=== PATIENT | male | born 1960 | race Two or more races ===

== ENCOUNTER 2023-11-08 14:54 | Emergency (ER) | payer BC, OTHER ==
[~2023-11-08] VITALS: Ht 165.1 cm; Wt 131.5 kg
[2023-11-08 15:35] VITALS: BP 194/83; PULSE 72; RESP 17; TEMP 98; O2SAT 93
[2023-11-08] MEDS ORDERED: CEPH500C PO (16:45)
== END 2023-11-08 16:45 | disposition home or self-care (01) ==
LOC: ER 14:54
DX: S61.211A Laceration without foreign body of left index finger without damage to nail, initial encounter (principal); W45.8XXA Other foreign body or object entering through skin, initial encounter; Y93.89 Activity, other specified; Y92.89 Other specified places as the place of occurrence of the external cause; Y99.8 Other external cause status
CPT/HCPCS: 12001